=== PATIENT | male | born 1960 | race Caucasian/White ===

== ENCOUNTER → 2016-10-07 | Outpatient (CLI) | payer BC ==
[2016-10-07 12:26] LABS: Basophils # (A) 0.1 k/uL (0-0.2); Basophils % (A) 1 %; CH 32.9; CHCM 34.5; Eosinophils # (A) 0.3 k/uL (0-0.7); Eosinophils % (A) 3 %; HCT 45.5 % (39.0-53.0); HDW 2.36; HGB 15.3 gm/dL (13.0-17.5); Luc # (Auto) 0.25; Luc % (Auto) 3; Lymphocytes # (A) 2.3 k/uL (1.0-4.8); Lymphocytes % (A) 30 %; MCH 32.1 pg (25.0-35.0); MCHC 33.6 g/dL (31.0-37.0); MCV 95.6 fL (80.0-100.0); Mean Platelet Volume 7.4; Monocytes # (A) 0.7 k/uL (0-1.0); Monocytes % (A) 9 %; Neutrophils # (A) 4.1 k/uL (1.3-7.7); Neutrophils % (A) 54 %; RBC 4.76 m/uL (4.30-5.90); RDW 12.5 % (11.5-15.5); WBC 7.6 k/uL (3.8-10.6); WBC (Perox) 7.89
[2016-10-07 12:41] LABS: Potassium 4.6 mmol/L (3.5-5.1)
== END | disposition home or self-care (01) ==
LOC: LABPAT 11:04
PROVIDERS: ATTEND Orthopaedic Surgery
DX: Z01.810 Encounter for preprocedural cardiovascular examination (principal); I10 Essential (primary) hypertension
CPT/HCPCS: 80051; 85025

== ENCOUNTER 2016-10-09 05:58 | Day surgery (SDC) | payer BC ==
[2016-10-07 10:38] VITALS: BMI 23.8
--- NOTE | 2016-10-08 15:00 | HP ---
DATE OF ADMISSION: 10/09/2016 Max Escamilla is a 56-year-old patient seen with progressive left shoulder pain. After having treatment options discussed, he elected to proceed with left shoulder arthroscopy. Consent was obtained. His past medical history is hypertension, hyperlipidemia, gastroesophageal reflux disease. His past surgical history is bilateral shoulder arthroscopy/surgery. Daily medications are: 1. Baclofen. 2. Klor-Con. 3. Lisinopril. 4. Dodson. 5. Pepcid. 6. Simvastatin. 7. Zofran. His allergies are NEURONTIN. SOCIAL HISTORY: Patient denies current tobacco use. Physical evaluation of the left shoulder: The chief ( ) degrees, abduction 160 degrees, external rotation is 50 degrees with weakness. There is evidence for a superior incision, which is well healed. No evidence of erythema, hyperemia or infective process. He is tender along the anterolateral acromion and rotator cuff insertion site. There is moderate subacromial crepitation with range of motion. Impingement +80 degrees, distal neurovascular exam is intact. Radiographs of the left shoulder revealed a lateral downsloping acromion with evidence for previous Raji procedure as well as cystic changes of the tuberosity. IMPRESSION: Left shoulder impingement with probable rotator cuff tear. PLAN: Left shoulder arthroscopy with subacromial decompression, possible arthroscopic rotator cuff repair, and debridement.
[~2016-10-09 05:58] MED LIST: DEXAMETHASONE SOD PHOSPHATE 10 MG/ML 1 ML VIAL IV ONE; HYDROmorphone 1 MG/ML 1 ML SYRINGE IVP PRN; LACTATED RINGERS 1,000 ML IV SCH; LIDOCAINE 1% 20 ML VIAL (10MG/ML) FOR IV START INTRADERMA PRN; MIDAZOLAM 2 MG/2 ML VIAL IV PRN; ONDANSETRON 4 MG/2 ML VIAL IVP ONE; SCOPOLAMINE 1.5MG/72HR PATCH TRANSDERM ONE; ceFAZolin 2 GM in SODIUM CHLORIDE 0.9% 100 ML IVPB ONE
[2016-10-09] MEDS ORDERED: LIDOCAINE 1% INJ 10MG/ML (20 ML MDV) ONE (07:32)
[2016-10-09] MEDS ORDERED: PROPOFOL 10 MG/ML 20 ML VIAL IV ONE (07:32)
[2016-10-09] MEDS ORDERED: LIDOCAINE 2%-EPI 1:100,000 20 ML VIAL ONE (07:32)
[2016-10-09] MEDS ORDERED: fentaNYL (PF) 50 MCG/ML 2 ML AMP ONE (07:32)
[2016-10-09] MEDS ORDERED: ROPIVACAINE 5 MG/ML 30 ML VIAL ONE (07:32)
[2016-10-09] MEDS ORDERED: HYDROmorphone (PF) 1 MG/ML ONE (07:32)
[2016-10-09] MEDS ORDERED: ROCURONIUM BROMIDE 10 MG/ML 10 ML VIAL IV ONE (07:32)
[2016-10-09] MEDS ORDERED: SUCCINYLCHOLINE CHLORIDE 100 MG/5 ML SYR IV ONE (07:32)
[2016-10-09] MEDS ORDERED: ceFAZolin 1,000 MG VIAL ONE (07:32)
[2016-10-09] MEDS ORDERED: LACTATED RINGERS 1,000 ML IV ONE (09:00)
--- NOTE | 2016-10-09 09:50 | P.OP ---
Date of Procedure: 10/09/16 Preoperative Diagnosis: Left shoulder rotator cuff tear Postoperative Diagnosis: 1. Left shoulder massive retracted rotator cuff tear 2. Left shoulder labral tear Procedure(s) Performed: 1. Left shoulder arthroscopic rotator cuff repair 2. Left shoulder arthroscopic debridement labral tear Implants: 1-valeris peek anchor Anesthesia: GETA, regional (Interscalene block) Surgeon: Matias Velez Nail Feeder #1: Artis Quevedo Estimated Blood Loss (ml): 20 Pathology: none sent Condition: stable Disposition: PACU Indications for Procedure: 56-year-old patient seen with progressive left shoulder pain consistent with rotator cuff tear. After having treatment options discussed, he elected to proceed with left shoulder arthroscopy. Operative Findings: See description of procedure Description of Procedure: Patient underwent a shoulder block by department of anesthesia. The patient was then taken to the operative suite. The patient underwent a general anesthetic by the department of anesthesia. The patient was placed into a lateral position and secured. There was appropriate padding of the bony prominence. Left shoulder was then prepped and draped in normal sterile orthopedic fashion. We placed the extremity in 10 pounds of longitudinal traction. A posterior incision was now made for a posterior working portal site. The trocar and cannula were inserted into the glenohumeral joint. Arthroscopy was initiated. Spinal needle was now inserted anteriorly, to ascertain the anterior working portal site. An incision was now made in that area, a trocar was inserted followed by a probe. There were grade 2/3 chondromalacia changes of the glenohumeral joint. There were no osteochondral tears present. There was some superficial tearing of the anterior labrum. The superior and posterior labrum were absent. Long head biceps tendon was absent. There was no obvious massive rotator cuff tear present. I debrided that superficial labral tear down to stable tissue. Instruments now removed from glenohumeral joint. Utilizing the posterior working portal site, the trocar and cannula were inserted into the subacromial space. Arthroscopy initiated. I made an incision 2 fingerbreadths lateral to the acromion. I introduced my trocar followed by my [employer]Care ablator. I now began ablating thick subacromial bursal tissue, which exposed the undersurface of the anterior acromion. There was an obvious massive retracted rotator cuff tear present. There was no obvious rotator cuff tissue present initially. There was significant residual sutures consistent with his previous rotator cuff repair present along the distal supraspinatus footprint area. I meticulously removed all of the residual suture. I now identified some rotator cuff tendon tissue posteriorly. I began to meticulously mobilize this. Identified some rotator cuff tissue anteriorly. I began to mobilize as well. I now began to repair the tendon [id number] area I inserted 6 [id number] sutures. At the very distal portion I cannot approximate the tendon as it was not enough tendon tissue. I decided to go head and tacked this down and hopes of creating some type of superior sling for this gentleman who has an obvious massive retracted tear that is not completely repairable. I passed 2 everted mattress sutures. I intact those down with one lateral anchor. Residual suture limbs were clipped. I again had a deficit distally of about 7 mm in length and 4 fibers in diameter right enough tissue to repair that. I injected 1 mL of Allogen into the intra-articular area. Instruments now removed from the portal sites. All portal sites were approximated with nylon suture. Sterile dressings were applied followed by a shoulder immobilizer. Artis CLEARY assisted with the procedure. The patient was awakened, transferred to a bed, and taken to recovery in stable condition. The patient's long-term prognosis is guarded were given regarding the significant not completely repairable rotator cuff tear that was present.
[2016-10-09 10:03] VITALS: TEMP 97.3
[2016-10-09 10:40] VITALS: RESP 16
[2016-10-09] MEDS ORDERED: oxyCODONE-APAP 5-325MG 1 EACH TAB PO ONE (11:17)
[2016-10-09 11:38] VITALS: BP 133/80; PULSE 93
--- NOTE | 2016-10-09 17:15 | P.ONQ ---
Anesthesiology Proc Note - PNB - Peripheral Nerve Block Performed Left Interscalene Single Time Out Performed: Yes Procedure Start Time: 07:11 Procedure Stop Time: :20 Indication: Acute Post-Operative Pain, Requested by physician Sedation Type: Sedate with meaningful contact maintained Preparation: Sterile Prep Position: Supine Needle Size: 50mm (2") Needle Gauge: 21 Injectate: 2.0% Lidocaine (see comment for volume) (17cc each) Adjunct: Epinephrine (see comment for dilution ratio) Blood Aspirated: No Resistance on Injection: Normal Events: Uneventful and Well Tolerated
== END 2016-10-09 11:55 | disposition home or self-care (01) ==
LOC: OR 05:58
PROVIDERS: ATTEND Orthopaedic Surgery
DX: M75.102 Unspecified rotator cuff tear or rupture of left shoulder, not specified as traumatic (principal); M94.212 Chondromalacia, left shoulder; S43.402A Unspecified sprain of left shoulder joint, initial encounter; K21.9 Gastro-esophageal reflux disease without esophagitis; R41.3 Other amnesia; I10 Essential (primary) hypertension; E78.5 Hyperlipidemia, unspecified; Z88.8 Allergy status to other drugs, medicaments and biological substances; X58.XXXA Exposure to other specified factors, initial encounter; Z86.73 Personal history of transient ischemic attack (TIA), and cerebral infarction without residual deficits
CPT/HCPCS: 64415; 29827; C1713; C1765; J2250; J1100; J0690 ×2; J2405; J2001; J3010; J1170; J2795; J0330; J2704

== ENCOUNTER → 2018-06-29 | Outpatient (CLI) | payer BC ==
--- NOTE | 2018-06-30 09:35 | CT ---
EXAMINATION TYPE: CT angio head DATE OF EXAM: 06/29/2018 6:22 PM COMPARISON: 10/31/2014. HISTORY: Migraines. History of brain aneurysm. CT DLP: 2263 mGycm Automated exposure control for dose reduction was used. TECHNIQUE: Performed without and with IV Contrast, patient injected with 100ml mL of Isovue 370. Three-D reconstructed images performed separately by the technologist on the [employer] computer are perf ormed.. FINDINGS: Beam hardening artifact from an aneurysm repair within the inferior left posterior fossa is evident. Noncontrast imaging through the brain appears otherwise unremarkable. Paranasal sinuses and mastoid a ir cells are clear. Ventricles and sulci are appropriate for the patient age. No acute infarcts are evident. Subtle hypod ensity in the right basal ganglion adjacent to the caudate head is stable from comparison. No masses are evident. Brain density appears normal. CTA: The internal carotid arteries bifurcate normally into A1 and M1 segments. A2 segments are normal . The anterior communicating artery is patent. Middle cerebral artery branches appear normal. Vertebr al arteries are unremarkable. There is limitation in evaluating near the aneurysm clip. The basilar a rtery appears normal. Posterior cerebral vasculature is normal. The right posterior communicating art zina may be patent. Left posterior communicating artery is not identified. Three-D reconstructed images are reviewed. IMPRESSION: 1. NO SUSPICIOUS BRAIN ANEURYSMS. 2. CT BRAIN APPEARS UNREMARKABLE.
== END | disposition home or self-care (01) ==
LOC: RADCTMAIN 16:49
PROVIDERS: ATTEND Family Medicine
DX: G43.909 Migraine, unspecified, not intractable, without status migrainosus (principal); Z86.69 Personal history of other diseases of the nervous system and sense organs
CPT/HCPCS: 70496; Q9967